=== PATIENT | female | born 1955 | race Caucasian/White ===

== ENCOUNTER 2022-12-20 07:41 | Emergency (ER) | payer OTHER ==
[~2022-12-20] VITALS: Ht 157.5 cm; Wt 81.6 kg
[2022-12-20 07:55] VITALS: O2SAT 98
[2022-12-20] MEDS ORDERED: AMOXICILLIN/POTASSIUM CLAVULANATE 875/125MG TAB PO ONE (08:15)
[2022-12-20] MEDS ORDERED: TETANUS, DIPHTHERIA, PERTUSSIS VAC/PF 0.5ML (>10YR OLD) IM ONE (08:30)
[2022-12-20] MEDS ORDERED: KETOROLAC 30MG/ML VIAL IM ONE (09:30)
[2022-12-20] MEDS ORDERED: AMOX1TAB16 MT (09:43)
[2022-12-20 10:33] VITALS: BP 126/86; PULSE 69; RESP 16; TEMP 98.2
== END 2022-12-20 10:34 | disposition home or self-care (01) ==
LOC: ER 07:41
DX: S61.452A Open bite of left hand, initial encounter (principal); W54.0XXA Bitten by dog, initial encounter; Y93.89 Activity, other specified; Y92.89 Other specified places as the place of occurrence of the external cause; Y99.8 Other external cause status
CPT/HCPCS: 99284; 73120; 90715; 90471; 96372; J1885